=== PATIENT | male | born 1945 | race Caucasian/White ===

== ENCOUNTER 2017-12-05 11:42 | Day surgery (SDC) | payer OTHER, MEDICARE ==
[~2017-12-05] VITALS: Ht 175.3 cm; Wt 61.2 kg
[~2017-12-05 11:42] MED LIST: IMDUR120 MG PO; LIPITOR80 MG PO; LITE COAT ASPI325 M1 PO; NORVASC5 MG PO; PLAVIX75 MG PO; ROCALTROL0.25 MCG PO; TOPROL XL25 MG PO; XALATAN2.5 ML BOTH EYES
[2017-12-05 12:14] LABS: HEMATOCRIT 40.4 % (38.0-50.0); HEMOGLOBIN 13.1 G/DL (12.5-16.6); MCH 30.5 PG (29.0-34.0); MCHC 32.4 G/DL (30.0-36.0); PLATELET COUNT 147 K/uL (156-360); RBC DIS.WIDTH-CV 13.7 % (11.8-14.6); RBC DIS.WIDTH-SD 46.6 % (39-53); WHITE BLOOD COUNT 5.9 K/uL (4.1-10.2)
[2017-12-05 12:30] LABS: CHLORIDE 115 MEQ/L (99-109); CREATININE 3.8 MG/DL (0.6-1.3); GFR ESTIMATE (CALCULATED) 17 mL/min/ (58.99-99999); GLUCOSE 97 mg/dL (70-99); POTASSIUM 4.5 MEQ/L (3.7-5.4); SODIUM 145 MEQ/L (136-147); UREA NITROGEN (BUN) 65 mg/dL (9-23)
[2017-12-05 12:49] VITALS: BP 135/69
[2017-12-05 20:00] VITALS: BP 146/71
[2017-12-05 20:50] VITALS: BP 140/68
== END 2017-12-05 21:00 | disposition home or self-care (01) ==
LOC: SDC 11:42
PROVIDERS: Surgery
DX: I12.0 Hypertensive chronic kidney disease with stage 5 chronic kidney disease or end stage renal disease (principal); N18.6 End stage renal disease; Z87.891 Personal history of nicotine dependence; E78.00 Pure hypercholesterolemia, unspecified; Z79.82 Long term (current) use of aspirin; Z79.02 Long term (current) use of antithrombotics/antiplatelets
CPT/HCPCS: 80048; 85027; J0690; J1644; J2720; J3010